=== PATIENT | male | born 1965 | race Caucasian/White ===

== ENCOUNTER → 2024-04-22 | Outpatient (CLI) | payer OTHER ==
--- NOTE | 2024-04-24 14:14 | PE ---
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 Images are reviewed on the computer in the coronal, a xial, and sagittal planes. Reconstructed rotating images are created on independent workstation and reviewed on the computer. A non-contrast CT is performed in conjunction with the PET scan. Glucose level 90 mg/dL CT DLP: 668 mGycm, Automated exposure control for dose reduction was used. COMPARISON: CT None, PET/CT None, MRI: None FINDINGS: Mediastinal SUV mean is 1.9. Hepatic parenchyma SUV mean is 2.7. SKULL BASE AND NECK: No suspicious radiotracer activity. CHEST, MEDIASTINUM, AND HILAR REGION: Right middle lobe pulmonary nodule measuring 15 mm Max SUV 1.3. ABDOMEN AND PELVIS: Tiny focal uptake near the anterior left peripheral zone of the prostate gland. Max SUV 2.9. Deformity seen due to noncontrast technique and CT. MUSCULOSKELETAL STRUCTURES: * No suspicious radiotracer activity. * Uptake within the left anterior rib 7 suspicious for traumatic injury max SUV 3.4. OTHER CT: Atherosclerosis of the heart is internal vascularity including the coronary arteries caroti d bifurcations. Mild cardiomegaly. Left simple appearing renal cysts moderate amount stool in the cor onal catheter scattered colonic diverticula. Prostatomegaly. IMPRESSION: 1. Right middle lobe pulmonary nodule with FDG levels at background. Short-term follow-up CT chest i n 3-6 months recommended for surveillance as malignancy is not excluded on this exam alone. No priors are available for comparison. Findings at this time favor granulomatous change. No additional FDG av id lymph nodes. 2. Left anterior rib 7 uptake with findings suspicious for fracture. Correlate with with history of trauma/pain. 3. Focal uptake near the anterior left prostate gland correlate with serum markers. Consider prostat e MRI.
== END | disposition home or self-care (01) ==
LOC: RADPETMAIN 13:49
PROVIDERS: ATTEND Nurse Practitioner Family
DX: C34.90 Malignant neoplasm of unspecified part of unspecified bronchus or lung (principal); R91.1 Solitary pulmonary nodule
CPT/HCPCS: 78815; A9552